=== PATIENT | female | born 1995 | race African-American/Black ===

== ENCOUNTER 2016-08-24 18:49 | Emergency (ER) | payer BC, OTHER ==
[2016-08-24 18:26] LABS: MICRO INDICATED? YES; URINE APPEARANCE CLEAR; URINE BILIRUBIN NEG (NEG); URINE BLOOD TRACE-INTACT (NEG); URINE COLOR YELLOW; URINE GLUCOSE NEG (NORM); URINE KETONE NEG (NEG); URINE LEUKOCYTE ESTERASE TRACE (NEG); URINE NITRATE NEG (NEG); URINE PROTEIN NEG (NEG); URINE SOURCE CLEAN CATCH; URINE UROBILINOGEN 0.2 MG/DL (NORM)
[2016-08-24 18:31] LABS: CULTURE INDICATED? NO; URINE BACTERIA NEG (NEG); URINE SQUAMOUS EPITHELIAL CELL FEW /[HPF]; URINE TRANSITIONAL EPI CELLS FEW /[HPF]
[~2016-08-24 18:49] MED LIST: AMOXICILLIN500 M1 PO; ANTIVERT PO; BACTRIM DS TABL1 TA1 PO; COLACE PO; DICLOFENAC PO; FERROUS SU325 ( 65 ) PO; HYDROCODONE-APA1 T61 PO; IBUPROFEN800 MG PO; K-DUR10 MEQ PO; LEVOFLOXACIN500 MG PO; NIFEDIPINE PO; NO MEDICATIONS; PERCOCET5/325 PO; PHENERGAN25 MG PO; PRENATAL1 TA1 PO; ZOFRAN ODT4 MG/UDTAB PO; ZOFRAN PO; [UNRECOGNIZED DRUG - OTHER] PO
[2016-08-26 20:33] LABS: CHLAMYDIA TRACH Not Detected (Not Detected); N GONOR Not Detected (Not Detected)
== END 2016-08-24 19:52 | disposition home or self-care (01) ==
LOC: SED 18:49
PROVIDERS: Physician Assistant
DX: N76.0 Acute vaginitis (principal)
CPT/HCPCS: 81003; 84703; 87491; 87591; 87808; 87905; 96372; 99284; J0696

== ENCOUNTER 2016-11-05 18:23 | Emergency (ER) | payer BC, OTHER | END 2016-11-05 20:04 | disposition home or self-care (01) | LOC: SED 18:23 | DX: R11.2 Nausea with vomiting, unspecified (principal); J02.0 Streptococcal pharyngitis; E11.9 Type 2 diabetes mellitus without complications | CPT/HCPCS: 36415; 87651; 96372; 96374; 99283; J0561; J2405 ==

== ENCOUNTER 2016-11-13 12:45 | Emergency (ER) | payer BC, OTHER ==
[2016-11-13 13:25] LABS: URINE SOURCE CLEAN CATCH
[2016-11-13 13:29] LABS: URINE APPEARANCE CLEAR; URINE BILIRUBIN NEG (NEG); URINE BLOOD TRACE-INTACT (NEG); URINE COLOR YELLOW; URINE GLUCOSE NEG (NORM); URINE KETONE NEG (NEG); URINE LEUKOCYTE ESTERASE TRACE (NEG); URINE NITRATE NEG (NEG); URINE PROTEIN NEG (NEG); URINE UROBILINOGEN 0.2 MG/DL (NORM)
[2016-11-13 13:33] LABS: MICRO INDICATED? YES
[2016-11-13 13:34] LABS: URINE RBC 0-2 /[HPF] (0-2)
[2016-11-13 13:35] LABS: CULTURE INDICATED? NO; URINE BACTERIA NEG (NEG); URINE CRYSTALS OTHER /[HPF]; URINE SQUAMOUS EPITHELIAL CELL FEW /[HPF]
[2016-11-15 10:59] LABS: CHLAMYDIA TRACH Not Detected (Not Detected); N GONOR Not Detected (Not Detected)
== END 2016-11-13 15:01 | disposition home or self-care (01) ==
LOC: SED 12:45
PROVIDERS: Student in an Organized Health Care Education/Training Program
DX: N89.8 Other specified noninflammatory disorders of vagina (principal); R30.0 Dysuria
CPT/HCPCS: 81003; 84703; 87210; 87491; 87591; 87808; 87905; 96372; 99283; J0696